=== PATIENT | female | born 1975 | race Caucasian/White ===

== ENCOUNTER 2023-07-25 21:02 | Emergency (ER) | payer OTHER ==
[~2023-07-25] VITALS: Ht 162.6 cm; Wt 63.5 kg
[2023-07-25 21:07] VITALS: BP 117/81; PULSE 78; RESP 20; TEMP 97.4; O2SAT 96
[2023-07-25] MEDS ORDERED: CARI350T PO (22:11)
[2023-07-25] MEDS: carisoprodoL 350 MG TAB PO ONE (22:21)
== END 2023-07-25 22:36 | disposition home or self-care (01) ==
LOC: MED 21:02
DX: M62.831 Muscle spasm of calf (principal); F31.9 Bipolar disorder, unspecified; Z79.899 Other long term (current) drug therapy
CPT/HCPCS: 99283